=== PATIENT | male | born 1950 | race Caucasian/White ===

== ENCOUNTER 2017-08-27 13:00 | Outpatient (CLI) | payer MEDICARE ==
[2017-08-27 09:40] LABS: Anion Gap 11 mmol/L (10-20); BUN (Urea Nitrogen) 19 mg/dL (8.4-25.7); Calc. Creatinine Clearance 0 mL/min (70-130); Calcium 9.9 mg/dL (7.8-10.44); Carbon Dioxide 26 mmol/L (23-31); Chloride 104 mmol/L (98-107); Estimated GFR-MDRD Greater than 90; Glucose 101 mg/dL (80-115); Potassium 4.2 mmol/L (3.5-5.1); Sodium 137 mmol/L (136-145)
== END 2017-08-27 13:01 | disposition home or self-care (01) ==
LOC: LABBT 13:00
PROVIDERS: ATTEND Surgery
DX: Z01.812 Encounter for preprocedural laboratory examination (principal); K62.0 Anal polyp
CPT/HCPCS: 80048

== ENCOUNTER 2017-09-04 05:56 | Day surgery (SDC) | payer MEDICARE ==
[2017-08-27 08:44] VITALS: BMI 25.4
[2017-09-04] MEDS ORDERED: Midazolam HCl 2 mg/2 ml Vial ONE (06:16)
[2017-09-04] MEDS ORDERED: Fentanyl 100 MCG/2 ML VIAL ONE (06:16)
[2017-09-04] MEDS ORDERED: Bupivacaine/Epinephrine 0.25% 30 ML VIAL ONE (06:35)
[2017-09-04] MEDS ORDERED: Lidocaine 2% 10 ML INJ ONE (06:35)
[2017-09-04] MEDS ORDERED: Lidocaine 2% Jelly 5 ML TUBE ONE (06:36)
[2017-09-04] MEDS ORDERED: cefOXitin 2 GM VIAL ONE (07:32)
--- NOTE | 2017-09-04 08:20 | OP ---
DATE OF PROCEDURE: 09/04/2017 PREOPERATIVE DIAGNOSIS: Anal canal mass. POSTOPERATIVE DIAGNOSIS: Anal canal mass. PROCEDURE: Transanal excision, anal canal mass. SURGEON: Dr. Mcguire. ANESTHESIA: General. ESTIMATED BLOOD LOSS: Minimal. COMPLICATIONS: None. SPECIMEN: Anal canal mass sent to path for final diagnosis. TECHNIQUE: The patient was taken to the operating room and placed supine on the table. After genera l anesthetic was obtained, he was placed in lithotomy position. His perineal area anal canal was pre pped and draped in a sterile fashion. Exam under anesthesia reveals there to be a broad-based mass j ust in the upper portion of the anal canal, just above the internal sphincter muscle. There was no o ther abnormality or mass in the anal canal. The mass was able to be retracted off of the sphincter m uscles. LigaSure was used to resect it. The mass was sent to path for final diagnosis. There is no bleeding in the wound bed. Gelfoam and lidocaine jelly packed in the anal canal. Patient was en ro [place] to recovery in stable condition. All sponge counts, needle counts, lap counts are correct.
[2017-09-04] MEDS ORDERED: Dexamethasone 20 MG/5 ML VIAL ONE (15:42)
[2017-09-04] MEDS ORDERED: Propofol 200 MG/20 ML VIAL ONE (15:42)
[2017-09-04] MEDS ORDERED: Ondansetron HCl/PF 4 MG/2 ML Vial ONE (15:42)
[2017-09-04] MEDS ORDERED: Lidocaine 1% PF 5 ML VIAL ONE (15:42)
== END 2017-09-04 10:08 | disposition home or self-care (01) ==
LOC: SDC 05:56
PROVIDERS: ATTEND Surgery
PROC: 0DBQ7ZX Excision of Anus, Via Natural or Artificial Opening, Diagnostic (ICD-10-PCS; principal; 2017-09-04)
DX: K62.89 Other specified diseases of anus and rectum (principal); I45.10 Unspecified right bundle-branch block; F32.9 Major depressive disorder, single episode, unspecified; F41.9 Anxiety disorder, unspecified; Z79.899 Other long term (current) drug therapy
CPT/HCPCS: 88304; J0694; J1100; J2001; J2250; J2405; J2704; J3010